=== PATIENT | male | born 1965 | race Caucasian/White ===

== ENCOUNTER 2018-04-17 09:14 | Emergency (ER) | payer OTHER ==
[2018-04-17] MEDS ORDERED: DUONEB 0.5-3 MG/3 ml Neb IH ONE ×2 (09:34→09:53)
--- NOTE | 2018-04-17 09:38 | ERPHSYRPT ---
- History of Present Illness Time Seen by Provider: 04/17/18 09:36 Source: patient Patient Subjective Stated Complaint: pt reports increased sob and pressure for osvaldo 1 wk-states that his bilateral hands swell a lot more over the last week- intermittant cough-states that he is also concerned about his meds-states he has had a med reaction similiar to this before Triage Nursing Assessment: pt pink warm and [id number] easy and nonlabored- speaking in complete sentences with ease-ambulatory with no noted increased work of breathing-radial pulses present and equal-no obvious swelling Physician History: mild to mod shortness of breath off and on for one week, no injury, no fever, no pain, +fatigue, no rash Allergies/Adverse Reactions: penicillin G Allergy (Intermediate, Verified 04/17/18 09:36) childhood allergy Home Medications: Atenolol 50 mg [Tenormin 50 mg] 50 mg PO DAILY 04/17/18 [History] Hctz/Triamterene 25/37.5 mg [Maxzide 25MG] 1 mg PO DAILY 04/17/18 [History] Loperamide HCl [Loperamide] 2 mg PO UD PRN 04/17/18 [History] Omeprazole 20 MG [Prilosec 20 mg] 20 mg PO DAILY 04/17/18 [History] Pravastatin Sodium [Pravachol] 40 mg PO DAILY 04/17/18 [History] Tizanidine HCl [Zanaflex] 2 mg PO HS 04/17/18 [History] Topiramate 100 mg [Topamax 100 MG] 100 mg PO BID 04/17/18 [History] Hx Tetanus, Diphtheria Vaccination/Date Given: Yes Hx Influenza Vaccination/Date Given: Yes Hx Pneumococcal Vaccination/Date Given: No Immunizations Up to Date: Yes - Review of Systems Constitutional: Weakness, No Fever Eyes: No Eye Redness Ears, Nose, & Throat: No Mouth Pain Respiratory: Dyspnea, No Cough, No Cyanosis Cardiac: No Chest Pain Abdominal/Gastrointestinal: No Abdominal Pain Genitourinary Symptoms: No Dysuria Musculoskeletal: No Back Pain Skin: No Rash Neurological: No Dizziness, No Focal Weakness - Past Medical History Pertinent Past Medical History: Yes Neurological History: Migraines Cardiac History: Arrhythmia, High Cholesterol, Hypertension Respiratory History: Asthma, Pulmonary Embolism - Past Surgical History Past Surgical History: Yes Musculoskeletal: Orthopedic Surgery - Social History Smoking Status: Never smoker Exposure to second hand smoke: No Drug Use: none Patient Lives Alone: No - Nursing Vital Signs Nursing Vital Signs: Initial Vital Signs Temperature 98.3 F 04/17/18 09:30 Pulse Rate 66 04/17/18 09:30 Respiratory Rate 18 04/17/18 09:30 Blood Pressure 122/84 04/17/18 09:30 O2 Sat by Pulse Oximetry 97 04/17/18 09:30 Pain Scale Pain Intensity 3 - Physical Exam General Appearance: no apparent distress Eye Exam: PERRL/EOMI, eyes nml inspection Ears, Nose, Throat Exam: No nasal congestion Neck Exam: non-tender, supple Respiratory Exam: lungs clear, No respiratory distress Cardiovascular/Chest Exam: normal heart sounds, regular rate/rhythm Abdominal/Gastrointestinal Exam: soft, No tenderness Extremity Exam: non-tender Neurologic Exam: alert, oriented x 3, cooperative Skin Exam: normal color, warm, dry SpO2 Interpretation: normal SpO2: 97 Oxygen Delivery: Room Air - Course Nursing assessment & vital signs reviewed: Yes - Radiology Exams Chest X-ray Interpretation: Discussed w/ radiologist, Negative Ordered Tests: Active Orders 24 hr Category Date Time Status Gunstock Repairer STAT Care 04/17/18 09:35 Active EKG-ER Only STAT Care 04/17/18 09:44 Active IV Insertion STAT Care 04/17/18 09:34 Active Regular Diet Diet 04/17/18 Dinner Active CHEST 2 VIEWS (PA AND LAT) Stat Exams 04/17/18 09:34 Completed CBC W DIFF Stat Lab 04/17/18 09:34 Completed CMP Stat Lab 04/17/18 09:34 Completed CREATININE SERUM Stat Lab 04/17/18 12:50 Completed D-DIMER QUANTITATION Stat Lab 04/17/18 09:34 Completed Lactic Acid Stat Lab 04/17/18 09:34 Completed NT PRO BNP Stat Lab 04/17/18 09:34 Completed PROTIME WITH INR Stat Lab 04/17/18 09:34 Completed TROPONIN Q3H Lab 04/17/18 09:34 Completed TROPONIN Q3H Lab 04/17/18 12:50 Completed TROPONIN Q3H Lab 04/17/18 15:45 Ordered TROPONIN Q3H Lab 04/17/18 18:45 Ordered TROPONIN Q3H Lab 04/17/18 21:45 Ordered Respiratory Nebulizer STAT RT 04/17/18 09:35 Active Medication Summary Discontinued Medications Generic Name Dose Route Start Last Admin Trade Name Shahnaz PRN Reason Stop Dose Admin Albuterol/Ipratropium 3 ml 04/17/18 09:34 04/17/18 09:55 Duoneb 0.5-3 Mg/3 Ml Neb IH 04/17/18 09:35 3 ml STAT ONE Administration Albuterol/Ipratropium Confirm 04/17/18 09:53 Duoneb 0.5-3 Mg/3 Ml Neb Administered 04/17/18 09:54 Dose 3 ml IH .STK-MED ONE Sodium Chloride 1,000 mls @ 999 mls/hr 04/17/18 11:22 04/17/18 12:26 Sodium Chloride 0.9% 1000 Ml IV 04/17/18 12:22 Infused .Q1H1M STA Infusion Sodium Chloride Confirm 04/17/18 11:29 Sodium Chloride 0.9% 1000 Ml Administered 04/17/18 11:30 Dose 1,000 mls @ ud .ROUTE .STK-MED ONE Lab/Rad Data: Laboratory Result Diagrams 04/17/18 09:34 04/17/18 12:50 Laboratory Results 04/17/18 04/17/18 04/17/18 Range/Units 12:50 12:50 09:34 WBC (4.0-10.5) K/mm3 RBC (4.1-5.6) M/mm3 Hgb (12.5-18.0) gm/dl Hct (42-50) % MCV (78-100) fl MCH (26-32) pg MCHC (32-36) g/dl RDW (11.5-14.0) % Plt Count (150-450) K/mm3 MPV (6-9.5) fl Gran % (36.0-66.0) % Eos # (Auto) (0-0.5) Absolute Lymphs (auto) (1.0-4.6) Absolute Monos (auto) (0.0-1.3) Lymphocytes % (24.0-44.0) % Monocytes % (0.0-12.0) % Eosinophils % (0.00-5.0) % Basophils % (0.0-0.4) % Absolute Granulocytes (1.4-6.9) Basophils # (0-0.4) PT (8.83-12.87) SECONDS INR (0.8-3.0) D-Dimer (215-500) ng/mL Sodium (137-145) mmol/L Potassium (3.5-5.1) mmol/L Chloride (98-107) mmol/L Carbon Dioxide (22-30) mmol/L Anion Gap (5-15) MEQ/L BUN (9-20) mg/dL Creatinine 1.39 H (0.66-1.25) mg/dL Estimated GFR 57.3 ML/MIN Glucose (74-106) mg/dL Lactic Acid (0.4-2.0) Calcium (8.4-10.2) mg/dL Total Bilirubin (0.2-1.3) mg/dL AST (17-59) U/L ALT (0-50) U/L Alkaline Phosphatase (38-126) U/L Troponin I < 0.012 < 0.012 (0.000-0.034) ng/mL NT-Pro-B Natriuret Pep (0-900) pg/mL Serum Total Protein (6.3-8.2) g/dL Albumin (3.5-5.0) g/dL 04/17/18 04/17/18 04/17/18 Range/Units 09:34 09:34 09:34 WBC (4.0-10.5) K/mm3 RBC (4.1-5.6) M/mm3 Hgb (12.5-18.0) gm/dl Hct (42-50) % MCV (78-100) fl MCH (26-32) pg MCHC (32-36) g/dl RDW (11.5-14.0) % Plt Count (150-450) K/mm3 MPV (6-9.5) fl Gran % (36.0-66.0) % Eos # (Auto) (0-0.5) Absolute Lymphs (auto) (1.0-4.6) Absolute Monos (auto) (0.0-1.3) Lymphocytes % (24.0-44.0) % Monocytes % (0.0-12.0) % Eosinophils % (0.00-5.0) % Basophils % (0.0-0.4) % Absolute Granulocytes (1.4-6.9) Basophils # (0-0.4) PT 12.4 (8.83-12.87) SECONDS INR 1.07 (0.8-3.0) D-Dimer 309 (215-500) ng/mL Sodium 143 (137-145) mmol/L Potassium 3.7 (3.5-5.1) mmol/L Chloride 106 (98-107) mmol/L Carbon Dioxide 25 (22-30) mmol/L Anion Gap 15.7 H (5-15) MEQ/L BUN 20 (9-20) mg/dL Creatinine 1.36 H (0.66-1.25) mg/dL Estimated GFR 58.7 ML/MIN Glucose 120 H (74-106) mg/dL Lactic Acid 1.5 (0.4-2.0) Calcium 9.9 (8.4-10.2) mg/dL Total Bilirubin 0.50 (0.2-1.3) mg/dL AST 17 (17-59) U/L ALT 25 (0-50) U/L Alkaline Phosphatase 80 (38-126) U/L Troponin I (0.000-0.034) ng/mL NT-Pro-B Natriuret Pep 30.0 (0-900) pg/mL Serum Total Protein 7.0 (6.3-8.2) g/dL Albumin 4.7 (3.5-5.0) g/dL 04/17/18 Range/Units 09:34 WBC 6.6 (4.0-10.5) K/mm3 RBC 5.18 (4.1-5.6) M/mm3 Hgb 15.8 (12.5-18.0) gm/dl Hct 45.3 (42-50) % MCV 87.5 (78-100) fl MCH 30.5 (26-32) pg MCHC 34.9 (32-36) g/dl RDW 13.2 (11.5-14.0) % Plt Count 171 (150-450) K/mm3 MPV 10.4 H (6-9.5) fl Gran % 57.8 (36.0-66.0) % Eos # (Auto) 0.12 (0-0.5) Absolute Lymphs (auto) 2.16 (1.0-4.6) Absolute Monos (auto) 0.48 (0.0-1.3) Lymphocytes % 32.8 (24.0-44.0) % Monocytes % 7.3 (0.0-12.0) % Eosinophils % 1.8 (0.00-5.0) % Basophils % 0.3 (0.0-0.4) % Absolute Granulocytes 3.81 (1.4-6.9) Basophils # 0.02 (0-0.4) PT (8.83-12.87) SECONDS INR (0.8-3.0) D-Dimer (215-500) ng/mL Sodium (137-145) mmol/L Potassium (3.5-5.1) mmol/L Chloride (98-107) mmol/L Carbon Dioxide (22-30) mmol/L Anion Gap (5-15) MEQ/L BUN (9-20) mg/dL Creatinine (0.66-1.25) mg/dL Estimated GFR ML/MIN Glucose (74-106) mg/dL Lactic Acid (0.4-2.0) Calcium (8.4-10.2) mg/dL Total Bilirubin (0.2-1.3) mg/dL AST (17-59) U/L ALT (0-50) U/L Alkaline Phosphatase (38-126) U/L Troponin I (0.000-0.034) ng/mL NT-Pro-B Natriuret Pep (0-900) pg/mL Serum Total Protein (6.3-8.2) g/dL Albumin (3.5-5.0) g/dL - Progress Progress: improved Air Movement: good Progress Note: 04/17/18 14:06 see your doctor, return if worse Counseled pt/family regarding: lab results, diagnosis, need for follow-up, rad results - Departure Time of Disposition: 14:06 Departure Disposition: Home Clinical Impression: Weak, Renal insufficiency Condition: Stable Critical Care Time: No Referrals: [facility]OSP[facility],'S [Primary Care Provider] - Instructions: Muscle Weakness Additional Instructions: oral fluids, rest, return if worse, see your doctor this week to follow up renal disease
[2018-04-17 09:51] LABS: BASOPHIL % 0.3 % (0.0-0.4); Basophil (Absolute #) 0.02 (0-0.4); Eosinophil % 1.8 % (0.00-5.0); Eosinophil (Absolute #) 0.12 (0-0.5); Granulocyte Absolute (ANC) 3.81 (1.4-6.9); Granulocytes % 57.8 % (36.0-66.0); Hematocrit 45.3 % (42-50); Hemoglobin 15.8 gm/dl (12.5-18.0); Lymphocyte (Absolute #) 2.16 (1.0-4.6); Lymphocytes % 32.8 % (24.0-44.0); Mean Cell Volume 87.5 fl (78-100); Mean Corpuscular Hemoglobin 30.5 pg (26-32); Mean Corpuscular Hgb Concent. 34.9 g/dl (32-36); Mean Platelet Volume 10.4 fl (6-9.5); Monocyte (Absolute #) 0.48 (0.0-1.3); Monocytes % 7.3 % (0.0-12.0); Platelet Count 171 K/mm3 (150-450); Red Blood Count 5.18 M/mm3 (4.1-5.6); Red Cell Distribution Width 13.2 % (11.5-14.0); White Blood Count 6.6 K/mm3 (4.0-10.5)
--- NOTE | 2018-04-17 10:14 | XRAY ---
Indication: Chest pain, short of breath, and weakness. Comparison: None PA/lateral chest demonstrates normal heart and lungs. Bony thorax intact with mild degenerative changes. Impression: Nonacute chest.
[2018-04-17 10:19] LABS: INR 1.07 (0.8-3.0)
[2018-04-17 10:57] LABS: ALBUMIN 4.7 g/dL (3.5-5.0); BILIRUBIN,TOTAL 0.5 mg/dL (0.2-1.3); Calcium 9.9 mg/dL (8.4-10.2); Creatinine 1 1.36 mg/dL (0.66-1.25); Potassium 3.7 mmol/L (3.5-5.1)
[2018-04-17 11:04] LABS: ANION GAP 15.7 MEQ/L (5-15)
[2018-04-17] MEDS ORDERED: Sodium Chloride 0.9% 1000 ML 1,000 ML IV STA (11:22)
[2018-04-17] MEDS ORDERED: Sodium Chloride 0.9% 1000 ML 1,000 ML ONE (11:29)
[2018-04-17 13:42] LABS: Creatinine 1 1.39 mg/dL (0.66-1.25)
[2018-04-17 14:12] VITALS: BP 120/59; PULSE 74; O2SAT 99
== END 2018-04-17 14:25 | disposition home or self-care (01) ==
LOC: ED 09:14
DX: R53.1 Weakness (principal); N28.9 Disorder of kidney and ureter, unspecified; R53.83 Other fatigue; R06.02 Shortness of breath; Z79.899 Other long term (current) drug therapy
CPT/HCPCS: 36000; 36415; 71046; 80053; 82565; 83605; 83880; 84484; 85025; 85379; 85610; 93005; 93041; 94150; 94640; 96365; 99284; A9270-GY